=== PATIENT | male | born 1940 | race Caucasian/White ===

== ENCOUNTER 2018-08-28 08:32 | Emergency (ER) | payer BC, MEDICARE ==
[2018-08-28 09:01] VITALS: BP 125/83
--- NOTE | 2018-08-28 09:54 | ED ---
Lower Extremity - HPI Summary HPI Summary: 78 yr old with the complaint of generalized aches. He states that for two weeks he has had bilateral leg ache, back pain, bilateral shoulder ache, and neck ache. He denies fever, chills, rash. He states he saw his PMD for these symptoms and was put on gabapentin. He states it is no better. He has not had SOB, pleuritic pain. He states he took tylenol this morning and felt somewhat better, and he is able to walk ok today. He has no weight loss. - History of Current Complaint Chief Complaint: UCLowerExtremity Stated Complaint: ACHY BILATERAL LEGS Time Seen by Provider: 08/28/18 09:24 Pain Intensity: 7 - Allergies/Home Medications Allergies/Adverse Reactions: Allergies Allergy/AdvReac Type Severity Reaction Status Date / Time No Known Allergies Allergy Verified 08/28/18 08:46 Home Medications: Home Medications Acetaminophen [Acetaminophen Extra Strength] 1,000 mg PO Q4H PRN 08/28/18 [ History Confirmed 08/28/18] Amlodipine Besylate [Norvasc] 10 mg PO DAILY 08/28/18 [History Confirmed ] Aspirin [Aspir-Low] 81 mg PO DAILY 08/28/18 [History Confirmed 08/28/18] Carvedilol TAB* [Coreg TAB*] 25 mg PO BID 08/28/18 [History Confirmed 08/28/18] Gabapentin CAP(*) [Neurontin 300 CAP(*)] 300 mg PO TID 08/28/18 [History Confirmed 08/28/18] Irbesartan 150 mg PO DAILY 08/28/18 [History Confirmed 08/28/18] Omeprazole CAP(NF) [PriLOSEC CAP(NF)] 10 mg PO DAILY 08/28/18 [History Confirmed 08/28/18] Sitagliptin Phosphate [Januvia] 100 mg PO DAILY 08/28/18 [History Confirmed ] Tadalafil [Cialis] 20 mg PO DAILY PRN 08/28/18 [History Confirmed 08/28/18] glipiZIDE TAB* [Glucotrol TAB*] 5 mg PO QPM 08/28/18 [History Confirmed 08/28/18 ] glipiZIDE TAB* [Glucotrol TAB*] 15 mg PO DAILY 08/28/18 [History Confirmed 08/28] metFORMIN* [Glucophage 500 MG TAB *] 500 mg PO BID 08/28/18 [History Confirmed 08/28/18] PMH/Surg Hx/FS Hx/Imm Hx Endocrine/Hematology History: Reports: Hx Diabetes - no insulin Cardiovascular History: Reports: Hx Hypertension - Surgical History Surgery Procedure, Year, and Place: abdominal hernia x 2- 2nd with mesh, tonsils Infectious Disease History: No Infectious Disease History: Denies: Traveled Outside the [place] in Last 30 Days - Family History Known Family History: Positive: None - Social History Alcohol Use: Occasionally Substance Use Type: Reports: None Smoking Status (MU): Former Smoker Review of Systems Constitutional: Negative Positive: Myalgia All Other Systems Reviewed And Are Negative: Yes Physical Exam Triage Information Reviewed: Yes Vital Signs On Initial Exam: Initial Vitals Temp Pulse Resp BP Pulse Ox 98.3 F 73 24 125/83 95 08/28/18 08:47 08/28/18 08:47 08/28/18 08:47 08/28/18 08:47 08/28/18 08:47 Vital Signs Reviewed: Yes Appearance: Positive: Well-Appearing, No Pain Distress Skin: Positive: Warm, Skin Color Reflects Adequate Perfusion Head/Face: Positive: Normal Head/Face Inspection Eyes: Positive: EOMI, TOLU Neck: Positive: Nontender Respiratory/Lung Sounds: Positive: Clear to Auscultation, Breath Sounds Present Cardiovascular: Positive: RRR. Negative: Murmur Abdomen Description: Negative: Distended Musculoskeletal: Positive: Strength/ROM Intact. Negative: Edema Left, Edema Right Neurological: Positive: Sensory/Motor Intact, Alert, Oriented to Person Place, Time, CN Intact II-III, Normal Gait, Speech Normal Psychiatric: Positive: Normal - Tayo Coma Scale Best Eye Response: 4 - Spontaneous Best Motor Response: 6 - Obeys Commands Best Verbal Response: 5 - Oriented Coma Scale Total: 15 Diagnostics - Vital Signs Vital Signs Temp Pulse Resp BP Pulse Ox 08/28/18 08:47 98.3 F 73 24 125/83 95 - Laboratory Lab Statement: Any lab studies that have been ordered have been reviewed, and results considered in the medical decision making process. Lower Extremity Course/Dx - Course Course Of Treatment: 78 yr old with myalgias. He will go to the ER for further work up. - Diagnoses Provider Diagnoses: Myalgia Discharge - Sign-Out/Discharge Documenting (check all that apply): Patient Departure All imaging exams completed and their final reports reviewed: No Studies - Discharge Plan Condition: Good Disposition: HOME-RECOMMEND TO ED Patient Education Materials: Leg Pain (ED) Referrals: Asad Galeano PA [Primary Care Provider] - 1 Day Additional Instructions: You need to go to the ER for further work up of your generalized body pain and concerns. Do not delay; go now for further work up . - Billing Disposition and Condition Condition: GOOD Disposition: Home-Recommend to ED
== END 2018-08-28 09:57 | disposition home health service (06) ==
LOC: UCCORT 08:32
DX: M79.10 Myalgia, unspecified site (principal); E11.9 Type 2 diabetes mellitus without complications; I10 Essential (primary) hypertension; Z79.82 Long term (current) use of aspirin; Z79.899 Other long term (current) drug therapy; Z79.84 Long term (current) use of oral hypoglycemic drugs; Z87.891 Personal history of nicotine dependence
CPT/HCPCS: 99212; G0463

== ENCOUNTER 2019-01-22 08:44 | Emergency (ER) | payer BC ==
[2019-01-22 09:03] VITALS: BP 119/69
[2019-01-22 10:12] LABS: Influenza A Molecular NEGATIVE (Negative); Influenza B Molecular NEGATIVE (Negative)
--- NOTE | 2019-01-22 10:20 | ED ---
Respiratory - HPI Summary HPI Summary: 78 yr old with the complaint of runny nose, cough, body aches. Onset yesterday. He states he first got body aches, and then started with nasal congestion and coughing. No fever or chills. He has no SOB. No productive cough. 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 - History of Current Complaint Chief Complaint: UCGeneralIllness Stated Complaint: COUGH Time Seen by Provider: 01/22/19 09:36 Pain Intensity: 7 - Allergy/Home Medications Allergies/Adverse Reactions: Allergies Allergy/AdvReac Type Severity Reaction Status Date / Time No Known Allergies Allergy Verified 01/22/19 09:04 PMH/Surg Hx/FS Hx/Imm Hx Endocrine/Hematology History: Reports: Hx Diabetes - no insulin Cardiovascular History: Reports: Hx Hypertension - Surgical History Surgery Procedure, Year, and Place: abdominal hernia x 2- 2nd with mesh, tonsils Infectious Disease History: No Infectious Disease History: Denies: Traveled Outside the [place] in Last 30 Days - Family History Known Family History: Positive: None - Social History Occupation: Employed Part-time Lives: With Family Alcohol Use: Rare Substance Use Type: Reports: None Smoking Status (MU): Former Smoker Review of Systems Negative: Fever, Chills Positive: Sore Throat, Nasal Discharge Positive: Cough Positive: Myalgia All Other Systems Reviewed And Are Negative: Yes Physical Exam Triage Information Reviewed: Yes Vital Signs On Initial Exam: Initial Vitals Temp Pulse Resp BP Pulse Ox 98.4 F 74 20 119/69 95 01/22/19 09:00 01/22/19 09:00 01/22/19 09:00 01/22/19 09:00 01/22/19 09:00 Vital Signs Reviewed: Yes Appearance: Positive: Well-Appearing, No Pain Distress Skin: Positive: Warm, Skin Color Reflects Adequate Perfusion Head/Face: Positive: Normal Head/Face Inspection Eyes: Positive: EOMI ENT: Positive: Pharynx normal, Nasal congestion, TMs normal Neck: Positive: Nontender Respiratory/Lung Sounds: Positive: Clear to Auscultation, Breath Sounds Present Cardiovascular: Positive: RRR. Negative: Murmur Abdomen Description: Negative: Distended Musculoskeletal: Positive: Strength/ROM Intact Neurological: Positive: Sensory/Motor Intact, Alert, Oriented to Person Place, Time, CN Intact II-III Psychiatric: Positive: Normal - Tayo Coma Scale Best Eye Response: 4 - Spontaneous Best Motor Response: 6 - Obeys Commands Best Verbal Response: 5 - Oriented Coma Scale Total: 15 Diagnostics - Vital Signs Vital Signs Temp Pulse Resp BP Pulse Ox 01/22/19 09:00 98.4 F 74 20 119/69 95 - Laboratory Lab Results: Lab Results 01/22/19 Range/Units 09:58 Influenza A (Rapid) Negative (Negative) Influenza B (Rapid) Negative (Negative) Lab Statement: Any lab studies that have been ordered have been reviewed, and results considered in the medical decision making process. - Radiology chest xray pa lat Radiology Interpretation Completed By: Radiologist - nad Disposition - Course Course Of Treatment: 78 yr old with URI. Flu negative - Diagnoses Provider Diagnoses: Upper respiratory infection Discharge ED - Sign-Out/Discharge Documenting (check all that apply): Patient Departure All imaging exams completed and their final reports reviewed: No Studies - Discharge Plan Condition: Good Disposition: HOME Patient Education Materials: Upper Respiratory Infection (ED) Referrals: Asad Galeano PA [Primary Care Provider] - 2 Days - Billing Disposition and Condition Condition: GOOD Disposition: Home
== END 2019-01-22 10:39 | disposition home or self-care (01) ==
LOC: UCCORT 08:44
DX: J06.9 Acute upper respiratory infection, unspecified (principal); E11.9 Type 2 diabetes mellitus without complications; I10 Essential (primary) hypertension; Z87.891 Personal history of nicotine dependence
CPT/HCPCS: 71046; 99212; G0463